=== PATIENT | female | born 1945 | race Caucasian/White ===

== ENCOUNTER 2017-01-26 23:15 | Emergency (ER) | payer OTHER, MEDICARE ==
[2017-01-26] MEDS ORDERED: Sodium Chloride 0.9% 1,000 ML IV ONE (23:29)
[2017-01-26] MEDS ORDERED: Sodium Chloride 0.9% 10 ML Syringe FLUSH PRN (23:29)
[2017-01-26] MEDS ORDERED: Ketorolac 15 MG/ML SDV IVPUSH ONE (23:38)
[2017-01-26] MEDS ORDERED: Sodium Chloride 0.9% 100 ML IV SCH (23:45)
[2017-01-26] MEDS ORDERED: Iopamidol 612 MG/ML 100 ML Bottle IVPUSH ONE (23:59)
--- NOTE | 2017-01-27 00:08 | EDM.PDOC ---
ED HPI GENERAL MEDICAL PROBLEM - General Chief Complaint: General Stated Complaint: back pain Time Seen by Provider: 01/26/17 23:20 Source of Information: Reports: Patient History Limitations: Reports: No Limitations - History of Present Illness INITIAL COMMENTS - FREE TEXT/NARRATIVE: Patient reports mid back pain on the left side that wraps around to under the left breast area. Was seen last year around this time and admitted for PE. Was placed on Xarelto for this and by her own admission she has not been taking this consistently. She has taken it the last couple of days. She denies any calf pain, redness, or swelling. Has some SOB with deep breaths. No arm, neck , or jaw pain. Denies any abdominal pain. Is having regular bm's and voiding habits with no blood. Multiple allergies. Works at the [employer] in [employer]. She denies smoking. Rare alcohol use. History of Factor V Leiden, chronic lymphocytic leukemia. Family history of coagulopathy. Onset: Today, Gradual Duration: Intermittent Location: Reports: Chest, Back Quality: Reports: Pressure Severity: Moderate Associated Symptoms: Reports: Chest Pain, Shortness of Breath Left Upper Back Pain Score (Numeric/FACES): 7 - Related Data Allergies Allergy/AdvReac Type Severity Reaction Status Date / Time azithromycin [From Zithromax] Allergy Abdominal Verified 01/26/17 23:36 Cramps diltiazem [From Cardizem] Allergy Rash Verified 01/26/17 23:36 doxycycline Allergy Rash Verified 01/26/17 23:36 Penicillins Allergy Rash Verified 01/26/17 23:36 Sulfa (Sulfonamide Allergy Rash Verified 01/26/17 23:36 Antibiotics) fluvastatin [From Lescol] AdvReac Muscle Verified 01/26/17 23:36 Aches hydromorphone HCl AdvReac Hallucinati Verified 01/26/17 23:36 [From Dilaudid] ons morphine AdvReac Hallucinati Verified 01/26/17 23:36 ons nitroglycerin AdvReac Nausea Verified 01/26/17 23:36 oxycodone AdvReac Lightheaded Verified 01/26/17 23:36 ness rosuvastatin [From Crestor] AdvReac Muscle Verified 01/26/17 23:36 Aches tramadol AdvReac Nausea and Verified 01/26/17 23:36 Vomiting Home Meds: Home Meds Omeprazole 1 cap PO DAILY PRN 06/25/13 [History] Cholecalciferol (Vitamin D3) [Vitamin D3] 10,000 unit PO DAILY 02/11/16 [History ] Losartan/Hydrochlorothiazide [Hyzaar 50-12.5 Tablet] 1 each PO DAILY 02/11/16 [ History] Ubidecarenone [Co Q-10] 100 mg PO DAILY 02/11/16 [History] Rivaroxaban [Xarelto] 15 mg PO DAILY 02/12/16 [History] Past Medical History HEENT History: Reports: Impaired Vision Cardiovascular History: Reports: Hypertension Respiratory History: Reports: PE Gastrointestinal History: Reports: Other (See Below) Other Gastrointestinal History: reflux in past Genitourinary History: Reports: UTI, Recurrent [employer] History: Reports: Other (See Below) Other OB/BYN History: hysterectomy Oncologic (Cancer) History: Reports: Other (See Below) Other Oncologic History: CLL - Infectious Disease History Infectious Disease History: Reports: Chicken Pox Other Infectious Disease History: chicken pox as a child - Past Surgical History HEENT Surgical History: Reports: None Oncologic Surgical History: Reports: None Social & Family History - Family History Family Medical History: Noncontributory HEENT: Reports: Other (See Below) Other HEENT Family History: Patient's mother had strokes at 59, Patient's father had heart attack at 75 Cardiac: Reports: OR, Other (See Below) Other Cardiac Family History: see above - Tobacco Use Smoking Status *Q: Unknown Ever Smoked ED ROS GENERAL - Review of Systems Review Of Systems: See Below Constitutional: Reports: No Symptoms HEENT: Reports: No Symptoms Respiratory: Reports: Shortness of Breath Cardiovascular: Reports: Chest Pain Endocrine: Reports: No Symptoms GI/Abdominal: Reports: No Symptoms : Reports: No Symptoms Musculoskeletal: Reports: Back Pain Skin: Reports: No Symptoms Neurological: Reports: No Symptoms Psychiatric: Reports: No Symptoms Hematologic/Lymphatic: Reports: No Symptoms Immunologic: Reports: No Symptoms ED EXAM, GENERAL - Physical Exam Exam: See Below Exam Limited By: No Limitations General Appearance: Alert, WD/WN, No Apparent Distress Eye Exam: Bilateral Eye: EOMI, PERRL Ears: Normal TMs Nose: Normal Inspection Throat/Mouth: Normal Inspection, Normal Oropharynx Head: Atraumatic, Normocephalic Neck: Normal Inspection, Supple Respiratory/Chest: No Respiratory Distress, Lungs Clear, Normal Breath Sounds, No Accessory Muscle Use, Chest Non-Tender Cardiovascular: Normal Peripheral Pulses, Regular Rate, Rhythm, No Murmur GI/Abdominal: Normal Bowel Sounds, Soft, Non-Tender Back Exam: No: CVA Tenderness (L), CVA Tenderness (R) Extremities: Normal Inspection, Normal Range of Motion, Non-Tender, No Pedal Edema Neurological: Alert, Oriented, CN II-XII Intact, Normal Cognition, Normal Gait, Normal Reflexes, No Motor/Sensory Deficits Psychiatric: Normal Affect, Normal Mood Skin Exam: Warm, Dry, Intact, Normal Color, No Rash Lymphatic: No Adenopathy Course - Vital Signs Last Recorded V/S: Last Vital Signs Temp 36.1 C 01/27/17 01:11 Pulse 71 01/27/17 01:11 Resp 18 01/27/17 01:11 BP 145/105 H 01/27/17 01:11 Pulse Ox 96 01/27/17 01:11 - Orders/Labs/Meds Orders: Active Orders 24 hr Category Date Time Status EKG 12 Lead [EKG Documentation Completion] [RC] ROUTINE Care 01/26/17 23:49 Ordered Abdomen Pelvis w Cont [CT] Stat Exams 01/27/17 00:10 Taken Ang Chest [CT] Stat Exams 01/27/17 00:10 Taken Saline Lock Insert [OM.PC] Routine Oth 01/26/17 23:29 Ordered Labs: Laboratory Tests 01/26/17 01/26/17 01/26/17 Range/Units 23:51 23:51 23:51 WBC 14.3 H (4.0-10.0) x10^3/uL RBC 4.65 (4.00-5.50) x10^6/uL Hgb 13.2 D (12.0-16.0) g/dL Hct 41.2 (33.0-47.0) % MCV 88.6 D (78.0-93.0) fL MCH 28.4 (26.0-32.0) pg MCHC 32.0 (32.0-36.0) g/dL RDW Coeff of Maryjane 15.3 H (10.0-15.0) % Plt Count 172 (130-400) x10^3/uL Add Manual Diff Yes Neutrophils % (Manual) 17 L (50-80) % Lymphocytes % (Manual) 78 H (25-50) % Monocytes % (Manual) 3 (2-11) % Eosinophils % (Manual) 2 (0-4) % Smudge Cells Moderate H Platelet Estimate Adequate Poikilocytosis Rare Anisocytosis 1+ slight H Microcytosis 1+ slight H Ovalocytes 1+ slight H Stomatocytes 1+ slight H Helmet Cells Rare PT (9.8-11.8) SEC INR (2.0-3.5) D-Dimer, Quantitative 0.62 H (<=0.58) mg/LFEU Sodium 145 (136-145) mmol/L Potassium 3.5 (3.5-5.1) mmol/L Chloride 106 (98-107) mmol/L Carbon Dioxide 30 (21-32) mmol/L BUN 15 (7-18) mg/dL Creatinine 1.0 (0.55-1.02) mg/dL Est Cr Clr Drug Dosing 53.56 mL/min Estimated GFR (MDRD) 55 Glucose 113 H (74-106) mg/dL Calcium 9.1 (8.5-10.1) mg/dL Corrected Calcium 9.42 (8.5-10.1) mg/dL Total Bilirubin 0.4 (0.2-1.0) mg/dL AST 13 L (15-37) U/L ALT 13 L (14-59) U/L Alkaline Phosphatase 72 (46-116) U/L Creatine Kinase 79 (26-192) U/L Creatine Kinase Index TNP CK-MB (CK-2) TNP POC Troponin I (0.00-0.08) ng/mL NT-Pro-B Natriuret Pep 175 H (<=125) pg/mL Total Protein 5.9 L (6.4-8.2) g/dL Albumin 3.6 (3.4-5.0) g/dL Globulin 2.3 Albumin/Globulin Ratio 1.57 TSH, Ultra Sensitive 4.006 H (0.358-3.74) uIU/mL Urine Color (YELLOW) Urine Appearance (CLEAR) Urine pH (5.0-8.0) Ur Specific [place] Urine Protein (NEGATIVE) mg/dL Urine Glucose (UA) (NEGATIVE) mg/dL Urine Ketones (NEGATIVE) mg/dL Urine Occult Blood (NEGATIVE) Urine Nitrite (NEGATIVE) Urine Bilirubin (NEGATIVE) Urine Urobilinogen (0.2) EU/dL Ur Leukocyte Esterase (NEGATIVE) Urine RBC (NOT SEEN) /HPF Urine WBC (NOT SEEN) /HPF Ur Squamous Epith Cells (NEGATIVE) /HPF Urine Bacteria (NEGATIVE) /HPF Urine Mucus (NEGATIVE) /LPF 01/26/17 01/26/17 01/27/17 Range/Units 23:51 23:55 00:11 WBC (4.0-10.0) x10^3/uL RBC (4.00-5.50) x10^6/uL Hgb (12.0-16.0) g/dL Hct (33.0-47.0) % MCV (78.0-93.0) fL MCH (26.0-32.0) pg MCHC (32.0-36.0) g/dL RDW Coeff of Maryjane (10.0-15.0) % Plt Count (130-400) x10^3/uL Add Manual Diff Neutrophils % (Manual) (50-80) % Lymphocytes % (Manual) (25-50) % Monocytes % (Manual) (2-11) % Eosinophils % (Manual) (0-4) % Smudge Cells Platelet Estimate Poikilocytosis Anisocytosis Microcytosis Ovalocytes Stomatocytes Helmet Cells PT 12.7 H (9.8-11.8) SEC INR 1.2 L (2.0-3.5) D-Dimer, Quantitative (<=0.58) mg/LFEU Sodium (136-145) mmol/L Potassium (3.5-5.1) mmol/L Chloride (98-107) mmol/L Carbon Dioxide (21-32) mmol/L BUN (7-18) mg/dL Creatinine (0.55-1.02) mg/dL Est Cr Clr Drug Dosing mL/min Estimated GFR (MDRD) Glucose (74-106) mg/dL Calcium (8.5-10.1) mg/dL Corrected Calcium (8.5-10.1) mg/dL Total Bilirubin (0.2-1.0) mg/dL AST (15-37) U/L ALT (14-59) U/L Alkaline Phosphatase (46-116) U/L Creatine Kinase (26-192) U/L Creatine Kinase Index CK-MB (CK-2) POC Troponin I 0.00 (0.00-0.08) ng/mL NT-Pro-B Natriuret Pep (<=125) pg/mL Total Protein (6.4-8.2) g/dL Albumin (3.4-5.0) g/dL Globulin Albumin/Globulin Ratio TSH, Ultra Sensitive (0.358-3.74) uIU/mL Urine Color Yellow (YELLOW) Urine Appearance Slightly cloudy H (CLEAR) Urine pH 5.5 (5.0-8.0) Ur Specific [place] 1.025 Urine Protein Negative (NEGATIVE) mg/dL Urine Glucose (UA) Negative (NEGATIVE) mg/dL Urine Ketones Negative (NEGATIVE) mg/dL Urine Occult Blood Trace-intact H (NEGATIVE) Urine Nitrite Negative (NEGATIVE) Urine Bilirubin Negative (NEGATIVE) Urine Urobilinogen 0.2 (0.2) EU/dL Ur Leukocyte Esterase Negative (NEGATIVE) Urine RBC 5-10 H (NOT SEEN) /HPF Urine WBC 0-5 (NOT SEEN) /HPF Ur Squamous Epith Cells Rare (NEGATIVE) /HPF Urine Bacteria Not seen (NEGATIVE) /HPF Urine Mucus Rare H (NEGATIVE) /LPF Meds: Medications Discontinued Medications Generic Name Dose Route Start Last Admin Trade Name Freq PRN Reason Stop Dose Admin Hydrocodone Bitart/Acetaminophen 0.5 tab 01/27/17 01:07 01/27/17 01:18 Cost 325-10 Mg PO 01/27/17 01:08 0.5 tab ONETIME ONE Administration Ceftriaxone Sodium 1 gm 01/27/17 01:32 01/27/17 01:39 Rocephin IVPUSH 01/27/17 01:33 1 gm ONETIME ONE Administration Fentanyl 50 mcg 01/27/17 00:09 01/27/17 00:14 Sublimaze IVPUSH 01/27/17 00:10 50 mcg ONETIME ONE Administration Fentanyl 50 mcg 01/27/17 01:06 01/27/17 01:13 Sublimaze IVPUSH 01/27/17 01:07 50 mcg ONETIME ONE Administration Sodium Chloride 1,000 mls @ 999 mls/hr 01/26/17 23:29 01/26/17 23:38 Normal Saline IV 01/27/17 00:29 999 mls/hr ONETIME ONE Administration Sodium Chloride 100 mls @ 3 mls/sec 01/26/17 23:45 01/27/17 00:46 Normal Saline IV 3 mls/sec ASDIRECTED KALEB Administration Iopamidol 100 ml 01/26/17 23:59 01/27/17 00:45 Isovue-300 (61%) IVPUSH 01/27/17 00:00 100 ml ONETIME ONE Administration Ketorolac Tromethamine 15 mg 01/26/17 23:38 01/26/17 23:43 Toradol IVPUSH 01/26/17 23:39 15 mg ONETIME ONE Administration Ondansetron HCl 4 mg 01/27/17 01:07 01/27/17 01:17 Zofran IVPUSH 01/27/17 01:08 4 mg ONETIME ONE Administration Sodium Chloride 10 ml 01/26/17 23:29 Saline Flush FLUSH ASDIRECTED PRN Keep Vein Open - Radiology Interpretation Free Text/Narrative:: Review of diagnostics and CT exams. CT negative for PE, positive for hiatal hernia, umbilical hernia, cholelithiasis. Urine has blood and mucous. - Re-Assessments/Exams Free Text/Narrative Re-Assessment/Exam: 01/27/17 16:[address] this morning by Keisha did show an upper left breast mass that was indeterminant. Recommended mammogram. this result was called and shared with Rosalba who verbalized understanding and agreed to call her primary. Departure - Departure Time of Disposition: 01:55 Disposition: Home, Self-Care 01 Condition: Fair Clinical Impression: Pyelonephritis - Discharge Information Instructions: Pyelonephritis, Adult, [id number] Referrals: PCP,Unobtain [Ordering Only Provider] - Forms: ED Department Discharge Additional Instructions: Drink plenty of water and less coffee. Follow up with your primary provider as needed. You need to be taking your Xarelto daily as prescribed to prevent blood clots and pulmonary embolus. Finish your entire course of antibiotics. We will call you if your urine culture shows resistance to the Cipro. You can take tylenol for pain control. Use any NSAIDS like ibuprofen, aleve, or motrin very sparingly. I would suggest you not take them if possible. Your CT did not show any clots in your lungs. It did show a hiatal hernia, a small umbilical hernia, some diverticulosis, and stones in your gall bladder. Please call us if you have any questions or concerns. - Problem List & Annotations (1) Pyelonephritis SNOMED Code(s): 48277687 Code(s): N12 - TUBULO-INTERSTITIAL NEPHRITIS, NOT SPCF ACUTE OR CHRONIC Status: Acute Priority: Low - Problem List Review Problem List Initiated/Reviewed/Updated: Yes - My Orders Last 24 Hours: My Active Orders 01/26/17 23:29 Saline Lock Insert [OM.PC] Routine 01/26/17 23:49 EKG 12 Lead [EKG Documentation Completion] [RC] ROUTINE 01/27/17 00:10 Abdomen Pelvis w Cont [CT] Stat Ang Chest [CT] Stat - Assessment/Plan Last 24 Hours: My Active Orders 01/26/17 23:29 Saline Lock Insert [OM.PC] Routine 01/26/17 23:49 EKG 12 Lead [EKG Documentation Completion] [RC] ROUTINE 01/27/17 00:10 Abdomen Pelvis w Cont [CT] Stat Ang Chest [CT] Stat Assessment:: pyelonephritis Plan: Drink plenty of water and less coffee. Follow up with your primary provider as needed. You need to be taking your Xarelto daily as prescribed to prevent blood clots and pulmonary embolus. Finish your entire course of antibiotics. We will call you if your urine culture shows resistance to the Cipro. You can take tylenol for pain control. Use any NSAIDS like ibuprofen, aleve, or motrin very sparingly. I would suggest you not take them if possible. Your CT did not show any clots in your lungs. It did show a hiatal hernia, a small umbilical hernia, some diverticulosis, and stones in your gall bladder. Please call us if you have any questions or concerns.
[2017-01-27] MEDS ORDERED: fentaNYL 100 MCG/2 ML SDV IVPUSH ONE ×2 (00:09→01:06)
[2017-01-27 00:28] LABS: CHLORIDE,CL 106 mmol/L (98-107); SODIUM,NA 145 mmol/L (136-145)
[2017-01-27] MEDS ORDERED: Acetaminophen/HYDROcodone 325-10 MG Tab PO ONE (01:07)
[2017-01-27] MEDS ORDERED: Ondansetron 4 MG/2 ML SDV IVPUSH ONE (01:07)
[2017-01-27 01:12] VITALS: BP 145/105
[2017-01-27] MEDS ORDERED: cefTRIAXone 1 GM Vial IVPUSH ONE (01:32)
--- NOTE | 2017-01-27 15:59 | PCM.SN ---
- Free Text/Narrative Note: Patient called this afternoon and given results of her CT that was over read by Keisha this morning. According to CT reports she does have a mass in the upper left breast that is indeterminant. Recommendations were to have a mammogram to rule out potential breast cancer. She did verbalize understanding of this result and did state she would call her primary care provider to schedule her mammogram.
== END 2017-01-27 01:55 | disposition home or self-care (01) ==
LOC: VM.ED 23:15
DX: N12 Tubulo-interstitial nephritis, not specified as acute or chronic (principal); I10 Essential (primary) hypertension; Z88.5 Allergy status to narcotic agent; Z88.0 Allergy status to penicillin; Z88.1 Allergy status to other antibiotic agents; Z88.2 Allergy status to sulfonamides; Z79.899 Other long term (current) drug therapy; Z87.440 Personal history of urinary (tract) infections
CPT/HCPCS: 36415; 71275; 74177; 80053; 81001; 82550; 83880; 84443; 84484; 85025; 85379; 85610; 96361; 96374; 96375; 96376; 99284; A9270; J0696; J1885; J2405; J3010; J7030; J7050; Q9967; 93005

== ENCOUNTER 2019-11-13 09:18 | Emergency (ER) | payer MEDICARE, OTHER ==
[2019-11-13] MEDS ORDERED: Sodium Chloride 0.9% 10 ML Syringe FLUSH PRN (09:38)
--- NOTE | 2019-11-13 09:52 | EDM.PDOC ---
ED HPI GENERAL MEDICAL PROBLEM - General Stated Complaint: ER Time Seen by Provider: 11/13/19 09:18 Source of Information: Reports: Patient History Limitations: Reports: No Limitations - History of Present Illness INITIAL COMMENTS - FREE TEXT/NARRATIVE: Pt. presents to ER with complaints of L sided chest pain that started yesterday afternoon. She is concerned that she has a PE. Pt. has had 2 PEs in the past- approx. 10 years ago, and one in 04/10. 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 Pt. states that the pain is "squeezing". Denies any cough. No sick contacts. Denies any fever or chills. No substernal chest pain. No jaw, arm, neck or back pain. No palpitations. Looks like the patient has a history of recurrent pneumonia in the past as well. Pt. denies any recent trauma to the area. She states that the discomfort is constant, and is potentiated with deep breathing. Pt. denies any calf tenderness, duskiness, discoloration, aching, or extremity fatigue with activity. Onset Date: 11/12/19 Onset Time: 15:00 Location: Reports: Chest Quality: Reports: Pressure, Sharp Severity: Moderate Left Chest Pain Score (Numeric/FACES): 9 - Related Data Allergies Allergy/AdvReac Type Severity Reaction Status Date / Time amoxicillin Allergy Rash Verified 11/13/19 10:17 diltiazem [From Cardizem] Allergy Rash Verified 11/13/19 10:17 doxycycline Allergy Rash Verified 11/13/19 10:17 Penicillins Allergy Rash Verified 11/13/19 10:17 Sulfa (Sulfonamide Allergy Rash Verified 11/13/19 10:17 Antibiotics) azithromycin [From Zithromax] AdvReac Abdominal Verified 11/13/19 10:17 Cramps fluvastatin [From Lescol] AdvReac Muscle Verified 11/13/19 10:17 Aches hydromorphone HCl AdvReac Hallucinati Verified 11/13/19 10:17 [From Dilaudid] ons morphine AdvReac Hallucinati Verified 11/13/19 10:17 ons nitroglycerin AdvReac Nausea Verified 11/13/19 10:17 oxycodone AdvReac Lightheaded Verified 11/13/19 10:17 ness rosuvastatin [From Crestor] AdvReac Muscle Verified 11/13/19 10:17 Aches tramadol AdvReac Nausea and Verified 11/13/19 10:17 Vomiting isotopes Allergy Cannot Uncoded 11/13/19 10:17 Remember Home Meds: Home Meds Omeprazole 20 mg PO DAILY PRN 06/25/13 [History] Losartan/Hydrochlorothiazide [Hyzaar 50-12.5 Tablet] 1 tab PO DAILY 02/11/16 [History] Ubidecarenone [Co Q-10] 100 mg PO DAILY 02/11/16 [History] Rivaroxaban [Xarelto] 15 mg PO DAILY@1800 02/12/16 [History] Cholecalciferol (Vitamin D3) [Vitamin D3] 2,000 unit PO BID 04/10/17 [History] Iron 60 mg PO DAILY 04/10/17 [History] Loratadine [Claritin] 10 mg PO BEDTIME tablet 04/20/17 [Rx] Magnesium Oxide 400 mg PO DAILY tablet 04/20/17 [Rx] Past Medical History HEENT History: Reports: Impaired Vision Cardiovascular History: Reports: Hypertension Respiratory History: Reports: PE Gastrointestinal History: Reports: Other (See Below) Other Gastrointestinal History: reflux in past Genitourinary History: Reports: UTI, Recurrent BRANCH SPECIALIST History: Reports: Other (See Below) Other BRANCH SPECIALIST History: hysterectomy Hematologic History: Reports: Other (See Below) (Factor V Leiden and prothrombin gene mutation) Oncologic (Cancer) History: Reports: Other (See Below) Other Oncologic History: CLL - Infectious Disease History Infectious Disease History: Reports: Chicken Pox Other Infectious Disease History: chicken pox as a child - Past Surgical History HEENT Surgical History: Reports: None Oncologic Surgical History: Reports: None Social & Family History - Family History Family Medical History: Noncontributory HEENT: Reports: Other (See Below) Other HEENT Family History: Patient's mother had strokes at 59, Patient's father had heart attack at 75 Cardiac: Reports: [place], Other (See Below) Other Cardiac Family History: see above - Caffeine Use Caffeine Use: Reports: Coffee, Soda ED ROS GENERAL - Review of Systems Review Of Systems: See Below Constitutional: Reports: No Symptoms HEENT: Reports: No Symptoms Respiratory: Reports: Shortness of Breath, Pleuritic Chest Pain Cardiovascular: Reports: No Symptoms Endocrine: Reports: No Symptoms GI/Abdominal: Reports: No Symptoms : Reports: No Symptoms Musculoskeletal: Reports: No Symptoms Skin: Reports: No Symptoms Neurological: Reports: No Symptoms Psychiatric: Reports: No Symptoms Hematologic/Lymphatic: Reports: Other (See PMH. 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.) Immunologic: Reports: No Symptoms ED EXAM, GENERAL - Physical Exam Exam: See Below Exam Limited By: No Limitations General Appearance: Alert, WD/WN, Anxious Eye Exam: Bilateral Eye: EOMI, PERRL Throat/Mouth: Normal Inspection, Normal Lips, Normal Teeth, Normal Voice, No Airway Compromise Head: Atraumatic, Normocephalic Neck: Supple, Non-Tender Respiratory/Chest: No Respiratory Distress, Lungs Clear, Chest Non-Tender Cardiovascular: Normal Peripheral Pulses, Regular Rate, Rhythm, No Edema, No Murmur Peripheral Pulses: 4+: Radial (R) GI/Abdominal: Soft, Non-Tender, No Organomegaly, No Distention, No Mass (Female) Exam: Deferred Rectal (Female) Exam: Deferred Back Exam: Normal Inspection, Full Range of Motion Extremities: Normal Inspection, Normal Range of Motion, Non-Tender, No Pedal Edema, Normal Capillary Refill Neurological: Alert, Oriented, CN II-XII Intact, Normal Cognition, Normal Gait, Normal Reflexes, No Motor/Sensory Deficits Psychiatric: Normal Affect, Normal Mood Skin Exam: Warm, Dry, Intact, Normal Color, No Rash Lymphatic: No Adenopathy EKG INTERPRETATION Rhythm: NSR [place]: Normal P-Wave: Present QRS: Normal ST-T: Normal QT: Normal Course - Vital Signs Last Recorded V/S: Last Vital Signs Temp 36.8 C 11/13/19 09:18 Pulse 78 11/13/19 10:30 Resp 20 11/13/19 09:18 BP 170/91 H 11/13/19 10:30 Pulse Ox 94 L 11/13/19 09:18 - Orders/Labs/Meds Orders: Active Orders 24 hr Category Date Time Status EKG Documentation Completion [RC] STAT Care 11/13/19 09:39 Active CULTURE BLOOD [BC] Stat Lab 11/13/19 09:51 Received CULTURE BLOOD [BC] Stat Lab 11/13/19 09:56 Received Sodium Chloride 0.9% [Saline Flush] Med 11/13/19 09:38 Active 10 ml FLUSH ASDIRECTED PRN Blood Culture x2 Reflex Set [OM.PC] Stat Oth 11/13/19 09:39 Ordered Peripheral IV Insertion Adult [OM.PC] Routine Oth 11/13/19 09:39 Ordered Medication Orders Sodium Chloride (Saline Flush) 10 ml FLUSH ASDIRECTED PRN PRN Reason: Keep Vein Open Last Admin: 11/13/19 11:04 Dose: 10 ml Documented by: MITRA Labs: Laboratory Tests 11/13/19 11/13/19 11/13/19 Range/Units 09:30 09:30 09:30 WBC 15.4 H (4.0-10.0) x10^3/uL RBC 4.73 (4.00-5.50) x10^6/uL Hgb 11.9 L D (12.0-16.0) g/dL Hct 37.3 (33.0-47.0) % MCV 78.9 D (78.0-93.0) fL MCH 25.2 L (26.0-32.0) pg MCHC 31.9 L (32.0-36.0) g/dL RDW Coeff of Maryjane 16.1 H (10.0-15.0) % Plt Count 218 D (130-400) x10^3/uL Add Manual Diff Yes Neutrophils % (Manual) 47 L (50-80) % Band Neutrophils % 2 (0-6) % Lymphocytes % (Manual) 46 (25-50) % Monocytes % (Manual) 5 (2-11) % Platelet Estimate Adequate Hypochromasia 1+ slight H Anisocytosis 1+ slight H Microcytosis 1+ slight H PT 9.7 (9.5-12.3) SEC INR 0.9 L (2.0-3.5) D-Dimer, Quantitative (<=0.58) mg/LFEU Sodium 137 (136-145) mmol/L Potassium 3.7 (3.5-5.1) mmol/L Chloride 103 (98-107) mmol/L Carbon Dioxide 27 (21-32) mmol/L Anion Gap 10.7 (10-20) mmol/L BUN 13 (7-18) mg/dL Creatinine 0.8 (0.55-1.02) mg/dL Est Cr Clr Drug Dosing TNP Estimated GFR (MDRD) > 60 Glucose 114 H (74-106) mg/dL Lactic Acid (0.4-2.0) mmol/L Calcium 9.3 (8.5-10.1) mg/dL Corrected Calcium 9.70 (8.5-10.1) mg/dL Magnesium 1.8 (1.8-2.4) mg/dL Total Bilirubin 0.8 (0.2-1.0) mg/dL AST 12 L (15-37) U/L ALT 13 L (14-59) U/L Alkaline Phosphatase 85 (46-116) U/L Troponin I < 0.017 (<=0.056) ng/mL C-Reactive Protein 8.7 H (<=0.9) mg/dL Total Protein 6.2 L (6.4-8.2) g/dL Albumin 3.5 (3.4-5.0) g/dL Globulin 2.7 Albumin/Globulin Ratio 1.30 11/13/19 11/13/19 Range/Units 09:30 09:30 WBC (4.0-10.0) x10^3/uL RBC (4.00-5.50) x10^6/uL Hgb (12.0-16.0) g/dL Hct (33.0-47.0) % MCV (78.0-93.0) fL MCH (26.0-32.0) pg MCHC (32.0-36.0) g/dL RDW Coeff of Maryjane (10.0-15.0) % Plt Count (130-400) x10^3/uL Add Manual Diff Neutrophils % (Manual) (50-80) % Band Neutrophils % (0-6) % Lymphocytes % (Manual) (25-50) % Monocytes % (Manual) (2-11) % Platelet Estimate Hypochromasia Anisocytosis Microcytosis PT (9.5-12.3) SEC INR (2.0-3.5) D-Dimer, Quantitative 1.05 H (<=0.58) mg/LFEU Sodium (136-145) mmol/L Potassium (3.5-5.1) mmol/L Chloride (98-107) mmol/L Carbon Dioxide (21-32) mmol/L Anion Gap (10-20) mmol/L BUN (7-18) mg/dL Creatinine (0.55-1.02) mg/dL Est Cr Clr Drug Dosing Estimated GFR (MDRD) Glucose (74-106) mg/dL Lactic Acid 0.9 (0.4-2.0) mmol/L Calcium (8.5-10.1) mg/dL Corrected Calcium (8.5-10.1) mg/dL Magnesium (1.8-2.4) mg/dL Total Bilirubin (0.2-1.0) mg/dL AST (15-37) U/L ALT (14-59) U/L Alkaline Phosphatase (46-116) U/L Troponin I (<=0.056) ng/mL C-Reactive Protein (<=0.9) mg/dL Total Protein (6.4-8.2) g/dL Albumin (3.4-5.0) g/dL Globulin Albumin/Globulin Ratio Meds: Medications Generic Name Dose Route Start Last Admin Trade Name Freq PRN Reason Stop Dose Admin Sodium Chloride 10 ml 11/13/19 09:38 11/13/19 11:04 Saline Flush FLUSH 10 ml ASDIRECTED PRN Administration Keep Vein Open Discontinued Medications Generic Name Dose Route Start Last Admin Trade Name Freq PRN Reason Stop Dose Admin Iopamidol 100 ml 11/13/19 11:45 11/13/19 11:47 Isovue-300 (61%) IVPUSH 11/13/19 11:46 100 ml ONETIME ONE Administration Ketorolac Tromethamine 15 mg 11/13/19 10:58 11/13/19 11:04 Toradol IVPUSH 11/13/19 10:59 15 mg ONETIME ONE Administration - Radiology Interpretation Free Text/Narrative:: No PE on CTA. Mild pleural thickening. No infiltrate or other pathology. Departure - Departure Time of Disposition: 12:00 Disposition: Home, Self-Care 01 Clinical Impression: Atypical chest pain - Discharge Information Instructions: Naproxen and naproxen sodium oral immediate-release tablets, Nonspecific Chest Pain, Adult, [id number], Prednisone tablets Referrals: Jessee Jones MD [Primary Care Provider] - Forms: ED Department Discharge Additional Instructions: Prednisone 40mg once daily for 5 days Naproxen sodium 500mg 1 twice daily as needed for 10 days Follow-up with Dr. Jones in 7-10 days, sooner if not improving. Sepsis Event Note (ED) - Focused Exam Vital Signs: Vital Signs Temp Pulse Resp BP Pulse Ox 11/13/19 10:30 78 170/91 H 11/13/19 09:30 68 182/88 H 11/13/19 09:18 36.8 C 110 H 20 170/96 H 94 L - My Orders Last 24 Hours: My Active Orders 11/13/19 09:38 Sodium Chloride 0.9% [Saline Flush] 10 ml FLUSH ASDIRECTED PRN 11/13/19 09:39 EKG Documentation Completion [RC] STAT Blood Culture x2 Reflex Set [OM.PC] Stat Peripheral IV Insertion Adult [OM.PC] Routine 11/13/19 09:51 CULTURE BLOOD [BC] Stat 11/13/19 09:56 CULTURE BLOOD [BC] Stat - Assessment/Plan Last 24 Hours: My Active Orders 11/13/19 09:38 Sodium Chloride 0.9% [Saline Flush] 10 ml FLUSH ASDIRECTED PRN 11/13/19 09:39 EKG Documentation Completion [RC] STAT Blood Culture x2 Reflex Set [OM.PC] Stat Peripheral IV Insertion Adult [OM.PC] Routine 11/13/19 09:51 CULTURE BLOOD [BC] Stat 11/13/19 09:56 CULTURE BLOOD [BC] Stat Plan: Prednisone 40mg once daily for 5 days Naproxen sodium 500mg 1 twice daily as needed for 10 days Follow-up with Dr. Jones in 7-10 days, sooner if not improving.
[2019-11-13 10:16] LABS: ANION GAP 10.7 mmol/L (10-20); CHLORIDE,CL 103 mmol/L (98-107); SODIUM,NA 137 mmol/L (136-145)
--- NOTE | 2019-11-13 10:21 | CR ---
[id number] RAD/RAD Chest PA or AP 1V EXAM: RAD Chest PA or AP 1V INDICATION: LEFT-SIDED CHEST PAIN. COMPARISON: April 18, 2017. DISCUSSION: Cardiomediastinal silhouette is normal in size and contour. No infiltrate, effusion, pneumothorax, or edema. Bibasilar linear atelectasis and/or scarring. IMPRESSION: Bibasilar linear atelectasis and/or scarring. Vaibhav Arthur DO 11/13/19 1020 Thank you for allowing us to participate in the care of your patient.
[2019-11-13 10:51] VITALS: BP 170/91; PULSE 78
[2019-11-13] MEDS ORDERED: Ketorolac 15 MG/ML SDV IVPUSH ONE (10:58)
[2019-11-13] MEDS ORDERED: Iopamidol 612 MG/ML 100 ML Bottle IVPUSH ONE (11:45)
--- NOTE | 2019-11-13 11:56 | CT ---
[id number] CT/CTA Chest Exam: CTA Chest Clinical Data: CHEST PAIN POSITIVE D-DIMER HISTORY OF PULMONARY EMBOLUS COMPARISON: CORRELATION IS MADE WITH APRIL 19, 2017 FINDINGS: There are no pulmonary emboli There is a large hiatal hernia. There is mild pleural reaction at both lung bases. There is no mediastinal mass or adenopathy The great vessels are intact IMPRESSION: NO PULMONARY EMBOLI Joshua Haque MD 11/13/19 [id number] Thank you for allowing us to participate in the care of your patient.
== END 2019-11-13 12:15 | disposition home or self-care (01) ==
LOC: VM.ED 09:18
DX: R07.89 Other chest pain (principal); I10 Essential (primary) hypertension; K21.9 Gastro-esophageal reflux disease without esophagitis; Z86.711 Personal history of pulmonary embolism; Z88.1 Allergy status to other antibiotic agents; Z88.0 Allergy status to penicillin; Z88.2 Allergy status to sulfonamides; Z88.8 Allergy status to other drugs, medicaments and biological substances; Z88.5 Allergy status to narcotic agent; Z90.710 Acquired absence of both cervix and uterus; Z79.899 Other long term (current) drug therapy; Z79.01 Long term (current) use of anticoagulants
CPT/HCPCS: 36415; 71045; 71275; 80053; 83605; 83735; 84484; 85025; 85379; 85610; 86140; 87040; 93005; 96374; 99285-25; J1885; Q9967

== ENCOUNTER 2022-01-07 13:58 | Emergency (ER) | payer OTHER ==
[2022-01-07] MEDS ORDERED: Sodium Chloride 0.9% 10 ML Syringe FLUSH PRN (14:04)
[2022-01-07] MEDS ORDERED: Albuterol/Ipratropium 3.0-0.5 MG/3 ML Neb Soln NEB ONE (14:08)
[2022-01-07] MEDS ORDERED: cefTRIAXone 1 GM, Lidocaine 1% 2.1 ML IM ONE ×2 (14:42)
[2022-01-07 14:57] LABS: CHLORIDE,CL 103 mmol/L (98-107); SODIUM,NA 141 mmol/L (136-145)
[2022-01-07 14:58] LABS: ANION GAP 14.5 mmol/L (5-15); ESTIMATED GFR 67 mL/min (>=60)
[2022-01-07 18:18] VITALS: BP 155/88; PULSE 88
== END 2022-01-07 15:35 | disposition home or self-care (01) ==
LOC: VM.ED 13:58
DX: J18.9 Pneumonia, unspecified organism (principal); I10 Essential (primary) hypertension; Z88.1 Allergy status to other antibiotic agents; Z88.8 Allergy status to other drugs, medicaments and biological substances; Z88.0 Allergy status to penicillin; Z88.2 Allergy status to sulfonamides; Z88.6 Allergy status to analgesic agent; Z88.5 Allergy status to narcotic agent; Z79.899 Other long term (current) drug therapy; Z20.822 Contact with and (suspected) exposure to COVID-19
CPT/HCPCS: 36415; 71045; 80053; 83880; 84484; 85025; 87635; 93005; 94640; 96372; 99285; J0696; J7620-GY; U0002

== ENCOUNTER 2022-08-21 17:26 | Emergency (ER) | payer OTHER ==
[2022-08-21] MEDS ORDERED: Sodium Chloride 0.9% 10 ML Syringe FLUSH PRN (17:30)
[2022-08-21 18:37] LABS: CHLORIDE,CL 105 mmol/L (98-107); SODIUM,NA 140 mmol/L (136-145)
[2022-08-21 18:42] LABS: ANION GAP 13.7 mmol/L (5-15); ESTIMATED GFR 67 mL/min (>=60)
[2022-08-21] MEDS ORDERED: Iopamidol 755 Mg/ML 100 ML Bottle IVPUSH ONE (19:44)
[2022-08-21] MEDS ORDERED: cefTRIAXone 2 GM Vial IVPUSH ONE (19:53)
[2022-08-21] MEDS ORDERED: Ketorolac 15 MG/ML SDV IVPUSH ONE (20:12)
[2022-08-21] MEDS ORDERED: Acetaminophen/HYDROcodone 325-5 MG Tab PO ONE (20:13)
[2022-08-21] MEDS ORDERED: Levofloxacin 500 MG Tab PO ONE (20:16)
[2022-08-21] MEDS ORDERED: Take Home: Levofloxacin 500 MG Tab, 1 Tab Pack PO ONE (20:16)
[2022-08-21 20:20] LABS: CORONAVIRUS COVID-19 NAA POSITIVE (NEGATIVE); RESPIRATORY SYNCYTIAL VIR NAA NEGATIVE (NEGATIVE)
[2022-08-21] MEDS ORDERED: Take Home: Ciprofloxacin 500 MG Tab, 2 Tab Pack PO ONE ×2 (20:42→20:53)
[2022-08-21 23:13] VITALS: PULSE 100
[2022-08-22 01:08] VITALS: BP 160/97
== END 2022-08-21 21:04 | disposition home or self-care (01) ==
LOC: VM.ED 17:26
DX: U07.1 COVID-19 (principal); N39.0 Urinary tract infection, site not specified; I10 Essential (primary) hypertension; K21.9 Gastro-esophageal reflux disease without esophagitis; Z86.711 Personal history of pulmonary embolism; Z88.0 Allergy status to penicillin; Z88.8 Allergy status to other drugs, medicaments and biological substances; Z88.1 Allergy status to other antibiotic agents; Z88.2 Allergy status to sulfonamides; Z88.5 Allergy status to narcotic agent; Z79.01 Long term (current) use of anticoagulants; Z79.899 Other long term (current) drug therapy
CPT/HCPCS: 0241U; 36415; 71045; 71275; 80053; 81001; 83605; 83735; 83880; 84100; 84484; 85025; 85379; 85610; 85730; 86140; 87040; 87086; 87088; 93005; 93010; 96374; 99284; 99285-25; A9270-GY; J1885; Q9967

== ENCOUNTER 2022-08-27 15:47 | Emergency (ER) | payer OTHER ==
[2022-08-27 16:20] VITALS: BP 173/99; PULSE 103
[2022-08-27 16:46] LABS: HEMATOCRIT 32.6 % (33.0-47.0); HEMOGLOBIN 9.6 g/dL (12.0-16.0); MEAN CORPUSCULAR HGB CONC 29.4 g/dL (32.0-36.0); MEAN CORPUSCULAR VOLUME 64.6 fL (78.0-93.0); PLATELET COUNT,PLT 316 x10^3/uL (130-400); RED BLOOD CELL COUNT 5.05 x10^6/uL (4.00-5.50); WHITE BLOOD CELL COUNT,WBC 9.4 x10^3/uL (4.0-10.0)
[2022-08-27 16:56] LABS: A/G RATIO 1.33; ALANINE AMINOTRANSFERASE,ALT 25 U/L (14-59); ALBUMIN 3.6 g/dL (3.4-5.0); ALKALINE PHOSPHATASE 108 U/L (46-116); ANION GAP 14.4 mmol/L (5-15); ASPARTATE AMNIOTRANSFERASE,AST 21 U/L (15-37); BILIRUBIN TOTAL 0.4 mg/dL (0.2-1.0); BLOOD UREA NITROGEN,BUN 16 mg/dL (7-18); C-REACTIVE PROTEIN < 0.2 mg/dL (<=0.9); CARBON DIOXIDE,CO2 28 mmol/L (21-32); CHLORIDE,CL 101 mmol/L (98-107); ESTIMATED GFR 59 mL/min (>=60); GLUCOSE RANDOM 106 mg/dL (70-99); POTASSIUM,K 3.4 mmol/L (3.5-5.1); PROTEIN TOTAL,TP 6.3 g/dL (6.4-8.2); SODIUM,NA 140 mmol/L (136-145)
[2022-08-27 17:00] LABS: ANISOCYTOSIS 3+ MARKED; BAND PERCENT MAN 2 % (0-6); BLASTS PERCENT MAN 2 % (0); EOSINOPHILS ABSOLUTE MAN 0.2 x10^3/uL (0.0-0.5); EOSINOPHILS PERCENT MAN 2 % (0-4); LYMPHOCYTES % ATYPICAL MANUAL 6 % (0); LYMPHOCYTES ABSOLUTE MAN 5.9 x10^3/uL (1.0-4.8); LYMPHOCYTES PERCENT MAN 53 % (25-50); MONOCYTES ABSOLUTE MAN 0.7 x10^3/uL (0.0-0.8); MONOCYTES PERCENT MAN 7 % (2-11); NEUTROPHILS ABSOLUTE MAN 2.4 x10^3/uL (1.8-7.7); PLATELET COUNT ESTIMATE ADEQUATE; SEG NEUTROPHILS PERCENT MAN 24 % (50-80)
[2022-08-27 17:01] LABS: MICROCYTOSIS 2+ MODERATE; OVALOCYTES 1+ SLIGHT; POIKILOCYTOSIS 1+ SLIGHT; SPHEROCYTES 1+ SLIGHT; TOXIC GRANULATION 1+ SLIGHT
[2022-08-27 17:23] LABS: BILIRUBIN,URINE SMALL (NEGATIVE); COLOR,URINE DARK YELLOW (YELLOW); GLUCOSE,URINE NEGATIVE (NEGATIVE); KETONES,URINE NEGATIVE (NEGATIVE); LEUKOCYTE ESTERASE,URINE MODERATE (NEGATIVE); NITRITE,URINE POSITIVE (NEGATIVE); OCCULT BLOOD,URINE NEGATIVE (NEGATIVE); PROTEIN,URINE 30 mg/dL (NEGATIVE); UROBILINOGEN,URINE 0.2 EU/dL (0.2)
[2022-08-27 17:25] LABS: APPEARANCE,URINE CLOUDY (CLEAR)
[2022-08-27 17:29] LABS: BACTERIA,URINE MODERATE /HPF (NOT SEEN); MUCUS,URINE FEW /LPF (NOT SEEN); RBC,URINE 0-5 /HPF (NOT SEEN); SQUAMOUS EPITHELIAL CELLS,UR MODERATE /HPF (NOT SEEN)
[2022-08-27 17:30] LABS: AMORPHOUS SEDIMENT,URINE FEW; WBC,URINE 20-30 /HPF (NOT SEEN)
[2022-08-27] MEDS ORDERED: Nitrofurantoin Monohydrate/Macrocrystalline 100 MG Cap PO ONE (18:55)
== END 2022-08-27 19:16 | disposition home or self-care (01) ==
LOC: VM.ED 15:47
DX: U07.1 COVID-19 (principal); N39.0 Urinary tract infection, site not specified; I10 Essential (primary) hypertension; Z86.16 Personal history of COVID-19; Z88.0 Allergy status to penicillin; Z88.1 Allergy status to other antibiotic agents; Z88.2 Allergy status to sulfonamides; Z88.5 Allergy status to narcotic agent; Z88.8 Allergy status to other drugs, medicaments and biological substances; Z79.899 Other long term (current) drug therapy
CPT/HCPCS: 36415; 71046; 80053; 81001; 85025; 86140; 87086; 99285; A9270; 99284

== ENCOUNTER 2023-06-01 23:20 | Emergency (ER) | payer OTHER ==
[2023-06-01 23:56] LABS: HEMATOCRIT 40.7 % (33.0-47.0); HEMOGLOBIN 12.9 g/dL (12.0-16.0); MEAN CORPUSCULAR HEMOGLOBIN 27.6 pg (26.0-32.0); MEAN CORPUSCULAR HGB CONC 31.7 g/dL (32.0-36.0); MEAN CORPUSCULAR VOLUME 87.2 fL (78.0-93.0); PLATELET COUNT,PLT 102 x10^3/uL (130-400); RED BLOOD CELL COUNT 4.67 x10^6/uL (4.00-5.50); WHITE BLOOD CELL COUNT,WBC 5.3 x10^3/uL (4.0-10.0)
[2023-06-02] MEDS: Acetaminophen 325 MG Tab PO ONE (00:10)
[2023-06-02] MEDS: Sodium Chloride 0.9% 1,000 ML IV ONE ×2 (00:10→01:05)
[2023-06-02 00:15] LABS: A/G RATIO 1.67; ALANINE AMINOTRANSFERASE,ALT 19 U/L (14-59); ALBUMIN 3.5 g/dL (3.4-5.0); ALKALINE PHOSPHATASE 76 U/L (46-116); ASPARTATE AMNIOTRANSFERASE,AST 26 U/L (15-37); BILIRUBIN TOTAL 0.5 mg/dL (0.2-1.0); BLOOD UREA NITROGEN,BUN 15 mg/dL (7-18); C-REACTIVE PROTEIN 0.86 mg/dL (<=0.50); CALCIUM 8.4 mg/dL (8.5-10.1); CARBON DIOXIDE,CO2 26 mmol/L (21-32); CHLORIDE,CL 103 mmol/L (98-107); CREATININE 0.9 mg/dL (0.55-1.02); GLUCOSE RANDOM 120 mg/dL (70-99); POTASSIUM,K 3.5 mmol/L (3.5-5.1); PROTEIN TOTAL,TP 5.6 g/dL (6.4-8.2); SODIUM,NA 141 mmol/L (136-145)
[2023-06-02 00:17] LABS: ANION GAP 15.5 mmol/L (5-15); ESTIMATED GFR 66 mL/min (>=60)
[2023-06-02 00:35] LABS: CORONAVIRUS COVID-19 NAA NEGATIVE (NEGATIVE); INFLUENZA A NAA NEGATIVE (NEGATIVE)
[2023-06-02 00:37] LABS: INFLUENZA B NAA POSITIVE (NEGATIVE); RESPIRATORY SYNCYTIAL VIR NAA NEGATIVE (NEGATIVE)
[2023-06-02 00:44] LABS: BAND PERCENT MAN 5 % (0-6); BLASTS PERCENT MAN 1 % (0); LYMPHOCYTES % ATYPICAL MANUAL 4 % (0); LYMPHOCYTES ABSOLUTE MAN 1.6 x10^3/uL (1.0-4.8); LYMPHOCYTES PERCENT MAN 26 % (25-50); MONOCYTES ABSOLUTE MAN 0.4 x10^3/uL (0.0-0.8); MONOCYTES PERCENT MAN 7 % (2-11); NEUTROPHILS ABSOLUTE MAN 3.3 x10^3/uL (1.8-7.7); SEG NEUTROPHILS PERCENT MAN 57 % (50-80)
[2023-06-02 00:45] LABS: GIANT PLATELETS OCCASIONAL; PLATELET COUNT ESTIMATE DECREASED; POIKILOCYTOSIS 2+ MODERATE
[2023-06-02] MEDS: Ibuprofen 200 MG Tab PO STA (01:05)
[2023-06-02 01:18] VITALS: PULSE 136
[2023-06-02 01:41] VITALS: BP 141/79
== END 2023-06-02 01:56 | disposition home or self-care (01) ==
LOC: VM.ED 23:20
DX: J10.1 Influenza due to other identified influenza virus with other respiratory manifestations (principal); I10 Essential (primary) hypertension; E78.00 Pure hypercholesterolemia, unspecified; K21.9 Gastro-esophageal reflux disease without esophagitis; Z86.16 Personal history of COVID-19; Z90.49 Acquired absence of other specified parts of digestive tract; Z90.710 Acquired absence of both cervix and uterus; Z79.899 Other long term (current) drug therapy; Z88.2 Allergy status to sulfonamides; Z88.5 Allergy status to narcotic agent; Z88.6 Allergy status to analgesic agent; Z88.0 Allergy status to penicillin; Z88.8 Allergy status to other drugs, medicaments and biological substances
CPT/HCPCS: 0241U; 36415; 71046; 80053; 83605; 84145; 85025; 86140; 87040; 96360; 96361; 99285; A9270; J7030

== ENCOUNTER 2023-06-12 11:42 | Emergency (ER) | payer OTHER ==
[2023-06-12] MEDS ORDERED: Sodium Chloride 0.9% 10 ML Syringe FLUSH PRN (12:11)
[2023-06-12 12:24] LABS: HEMOGLOBIN 12.8 g/dL (12.0-16.0); MEAN CORPUSCULAR HEMOGLOBIN 27.5 pg (26.0-32.0); PLATELET COUNT,PLT 328 x10^3/uL (130-400); RED BLOOD CELL COUNT 4.65 x10^6/uL (4.00-5.50); WHITE BLOOD CELL COUNT,WBC 13.1 x10^3/uL (4.0-10.0)
[2023-06-12] MEDS: Sodium Chloride 0.9% 1,000 ML IV ONE (12:25)
[2023-06-12] MEDS: Aspirin 81 MG Tab.Chew PO ONE (12:25)
[2023-06-12 12:44] LABS: BAND PERCENT MAN 1 % (0-6); EOSINOPHILS ABSOLUTE MAN 0.1 x10^3/uL (0.0-0.5); EOSINOPHILS PERCENT MAN 1 % (0-4); LYMPHOCYTES % ATYPICAL MANUAL 1 % (0); LYMPHOCYTES ABSOLUTE MAN 5.8 x10^3/uL (1.0-4.8); LYMPHOCYTES PERCENT MAN 43 % (25-50); MONOCYTES ABSOLUTE MAN 0.5 x10^3/uL (0.0-0.8); MONOCYTES PERCENT MAN 4 % (2-11); NEUTROPHILS ABSOLUTE MAN 6.7 x10^3/uL (1.8-7.7); SEG NEUTROPHILS PERCENT MAN 50 % (50-80)
[2023-06-12 12:45] LABS: PLATELET COUNT ESTIMATE ADEQUATE; POIKILOCYTOSIS 2+ MODERATE
[2023-06-12 12:48] LABS: A/G RATIO 1.59; ALANINE AMINOTRANSFERASE,ALT 39 U/L (14-59); ALBUMIN 3.5 g/dL (3.4-5.0); ALKALINE PHOSPHATASE 101 U/L (46-116); ASPARTATE AMNIOTRANSFERASE,AST 37 U/L (15-37); BILIRUBIN TOTAL 0.8 mg/dL (0.2-1.0); BLOOD UREA NITROGEN,BUN 21 mg/dL (7-18); CALCIUM 9.4 mg/dL (8.5-10.1); CARBON DIOXIDE,CO2 27 mmol/L (21-32); CHLORIDE,CL 105 mmol/L (98-107); CREATININE 0.9 mg/dL (0.55-1.02); GLUCOSE RANDOM 119 mg/dL (70-99); PROTEIN TOTAL,TP 5.7 g/dL (6.4-8.2); SODIUM,NA 142 mmol/L (136-145)
[2023-06-12 12:49] LABS: ESTIMATED GFR 66 mL/min (>=60)
[2023-06-12] MEDS: Metoprolol Tartrate 5 MG/5 ML SDV IVPUSH ONE (13:06)
[2023-06-12 23:09] VITALS: BP 169/113; PULSE 138
== END 2023-06-12 13:49 | disposition home or self-care (01) ==
LOC: VM.ED 11:42
DX: R07.89 Other chest pain (principal); I49.1 Atrial premature depolarization; I10 Essential (primary) hypertension; K21.9 Gastro-esophageal reflux disease without esophagitis; Z86.16 Personal history of COVID-19; Z79.02 Long term (current) use of antithrombotics/antiplatelets; Z79.899 Other long term (current) drug therapy; Z88.8 Allergy status to other drugs, medicaments and biological substances; Z88.5 Allergy status to narcotic agent; Z88.1 Allergy status to other antibiotic agents; Z88.0 Allergy status to penicillin; Z88.2 Allergy status to sulfonamides
CPT/HCPCS: 36415; 71045; 80053; 83605; 84484; 85025; 93005; 93010; 96361; 96374; 99284; 99285-25; A9270-GY; J3490; J7030

== ENCOUNTER 2023-06-13 11:00 | Inpatient (IN) | payer OTHER, MEDICARE ==
[2023-06-13] MEDS ORDERED: Naloxone 0.4 MG/ML SDV IVPUSH PRN ×2 (11:32→19:19)
[2023-06-13] MEDS: fentaNYL 50 MCG/ML SDV IVPUSH ONE (11:35)
[2023-06-13 11:36] LABS: HEMATOCRIT 42.1 % (33.0-47.0); HEMOGLOBIN 13.5 g/dL (12.0-16.0); MEAN CORPUSCULAR HEMOGLOBIN 27.6 pg (26.0-32.0); MEAN CORPUSCULAR HGB CONC 32.1 g/dL (32.0-36.0); MEAN CORPUSCULAR VOLUME 85.9 fL (78.0-93.0); PLATELET COUNT,PLT 390 x10^3/uL (130-400); WHITE BLOOD CELL COUNT,WBC 14.9 x10^3/uL (4.0-10.0)
[2023-06-13 11:55] LABS: INR 1.2 (0.9-1.1); PROTHROMBIN TIME 12.3 SEC (9.5-12.2); PTT,PARTIAL THROMBOPLSTIN TIME 21.4 SEC (23.6-33.6)
[2023-06-13 12:01] LABS: A/G RATIO 1.63; ALANINE AMINOTRANSFERASE,ALT 59 U/L (14-59); ALBUMIN 3.9 g/dL (3.4-5.0); ALKALINE PHOSPHATASE 118 U/L (46-116); ASPARTATE AMNIOTRANSFERASE,AST 50 U/L (15-37); BILIRUBIN TOTAL 0.9 mg/dL (0.2-1.0); BLOOD UREA NITROGEN,BUN 19 mg/dL (7-18); CALCIUM 9.8 mg/dL (8.5-10.1); CARBON DIOXIDE,CO2 28 mmol/L (21-32); CHLORIDE,CL 103 mmol/L (98-107); CREATININE 0.9 mg/dL (0.55-1.02); GLUCOSE RANDOM 113 mg/dL (70-99); PRO B-TYPE NATRIUR PEPT,BNPPRO 9571 pg/mL (<=450); PROTEIN TOTAL,TP 6.3 g/dL (6.4-8.2); SODIUM,NA 142 mmol/L (136-145)
[2023-06-13 12:02] LABS: C-REACTIVE PROTEIN < 0.50 mg/dL (<=0.50); ESTIMATED GFR 66 mL/min (>=60)
[2023-06-13 12:04] LABS: BAND PERCENT MAN 1 % (0-6); LYMPHOCYTES ABSOLUTE MAN 5.4 x10^3/uL (1.0-4.8); LYMPHOCYTES PERCENT MAN 30 % (25-50); MONOCYTES ABSOLUTE MAN 1.5 x10^3/uL (0.0-0.8); MONOCYTES PERCENT MAN 10 % (2-11); PLATELET COUNT ESTIMATE ADEQUATE; SEG NEUTROPHILS PERCENT MAN 53 % (50-80)
[2023-06-13] MEDS: Metoprolol Tartrate 5 MG/5 ML SDV IVPUSH ONE (12:04)
[2023-06-13] MEDS: Furosemide 40 MG/4 ML VIAL IV ONE (13:30)
[2023-06-13] MEDS: Metoprolol Tartrate 25 MG Tab PO STA (14:24)
[2023-06-13] MEDS ORDERED: Albuterol HFA 18 Gm Inhaler INH PRN (14:58)
[2023-06-13] MEDS ORDERED: Polyethylene Glycol 3350 Powder 17 GM Packet PO PRN (15:27)
[2023-06-13] MEDS ORDERED: Acetaminophen 325 MG Tab PO PRN (15:27)
[2023-06-13] MEDS: Ibuprofen 200 MG Tab PO PRN (17:17)
[2023-06-13] MEDS: Rivaroxaban 10 MG Tab PO SCH (17:17)
[2023-06-13] MEDS: fentaNYL 50 MCG/ML SDV IVPUSH PRN (20:29)
[2023-06-13] MEDS ORDERED: Metoprolol Tartrate 25 MG Tab PO SCH (21:00)
[2023-06-13] MEDS: Triamcinolone Acetonide 0.1% Crm 15 GM Tube TOP SCH (21:36)
[2023-06-13] MEDS: Metoprolol Tartrate 25 MG Tab PO ONE (21:37)
[2023-06-13] MEDS: Cholecalciferol (Vitamin D3) 25 MCG Tab PO SCH (21:37)
[2023-06-14 07:12] LABS: HEMOGLOBIN 12.7 g/dL (12.0-16.0); MEAN CORPUSCULAR HEMOGLOBIN 27.4 pg (26.0-32.0); MEAN CORPUSCULAR HGB CONC 31.8 g/dL (32.0-36.0); MEAN CORPUSCULAR VOLUME 86.2 fL (78.0-93.0); PLATELET COUNT,PLT 333 x10^3/uL (130-400); RED BLOOD CELL COUNT 4.64 x10^6/uL (4.00-5.50); WHITE BLOOD CELL COUNT,WBC 15.1 x10^3/uL (4.0-10.0)
[2023-06-14 07:34] LABS: ANISOCYTOSIS 1+ SLIGHT; BAND PERCENT MAN 2 % (0-6); LYMPHOCYTES ABSOLUTE MAN 7.4 x10^3/uL (1.0-4.8); LYMPHOCYTES PERCENT MAN 49 % (25-50); MONOCYTES ABSOLUTE MAN 0.3 x10^3/uL (0.0-0.8); MONOCYTES PERCENT MAN 2 % (2-11); NEUTROPHILS ABSOLUTE MAN 7.4 x10^3/uL (1.8-7.7); SEG NEUTROPHILS PERCENT MAN 47 % (50-80); SMUDGE CELLS FEW
[2023-06-14 07:35] LABS: PLATELET COUNT ESTIMATE ADEQUATE
[2023-06-14 07:41] LABS: A/G RATIO 1.64; ALBUMIN 3.6 g/dL (3.4-5.0); BILIRUBIN TOTAL 0.7 mg/dL (0.2-1.0); CALCIUM 9.6 mg/dL (8.5-10.1); EST CRCL DRUG DOSING (CG) 50.02 mL/min; MAGNESIUM 1.9 mg/dL (1.8-2.4); POTASSIUM,K 3.4 mmol/L (3.5-5.1); PROTEIN TOTAL,TP 5.8 g/dL (6.4-8.2)
[2023-06-14 07:42] LABS: ANION GAP 15.4 mmol/L (5-15)
[2023-06-14] MEDS: Metoprolol Succinate 25 MG Tab.ER PO SCH (08:14)
[2023-06-14] MEDS: Losartan 50 MG Tab PO SCH (08:14)
[2023-06-14] MEDS: Furosemide 20 MG Tab PO SCH (08:15)
[2023-06-14] MEDS ORDERED: Non-Formulary Medication 1 Each (Ubidecarenone [Co Q-10] 100 MG Capsule) PO SCH (09:00)
[2023-06-14] MEDS: Metoprolol Succinate 25 MG Tab.ER PO ONE (09:17)
[2023-06-14] MEDS: Ketorolac 15 MG/ML SDV IVPUSH PRN (11:42)
[2023-06-14] MEDS: Metoprolol Tartrate 5 MG/5 ML SDV IVPUSH PRN (11:43)
[2023-06-14] MEDS: Metoprolol Succinate 50 MG Tab.ER PO SCH (20:36)
[2023-06-15] MEDS: Sodium Chloride 0.9% 10 ML Syringe FLUSH PRN (03:04)
[2023-06-15] MEDS: Ondansetron 4 MG Tab.DIS PO PRN (04:46)
[2023-06-15 08:45] LABS: HEMATOCRIT 37.4 % (33.0-47.0); HEMOGLOBIN 11.8 g/dL (12.0-16.0); MEAN CORPUSCULAR HEMOGLOBIN 27.5 pg (26.0-32.0); MEAN CORPUSCULAR HGB CONC 31.6 g/dL (32.0-36.0); MEAN CORPUSCULAR VOLUME 87.2 fL (78.0-93.0); PLATELET COUNT,PLT 302 x10^3/uL (130-400); RED BLOOD CELL COUNT 4.29 x10^6/uL (4.00-5.50); WHITE BLOOD CELL COUNT,WBC 12.6 x10^3/uL (4.0-10.0)
[2023-06-15 08:58] LABS: CALCIUM 9.2 mg/dL (8.5-10.1); CREATININE 0.9 mg/dL (0.55-1.02); EST CRCL DRUG DOSING (CG) 55.57 mL/min; POTASSIUM,K 3.7 mmol/L (3.5-5.1)
[2023-06-15] MEDS ORDERED: Metoprolol Succinate 50 MG Tab.ER PO SCH (09:00)
[2023-06-15 09:04] LABS: ANION GAP 10.7 mmol/L (5-15)
[2023-06-15 09:07] LABS: BAND PERCENT MAN 2 % (0-6); EOSINOPHILS ABSOLUTE MAN 0.4 x10^3/uL (0.0-0.5); EOSINOPHILS PERCENT MAN 3 % (0-4); LYMPHOCYTES % ATYPICAL MANUAL 3 % (0); LYMPHOCYTES ABSOLUTE MAN 6.2 x10^3/uL (1.0-4.8); LYMPHOCYTES PERCENT MAN 46 % (25-50); MONOCYTES ABSOLUTE MAN 0.4 x10^3/uL (0.0-0.8); MONOCYTES PERCENT MAN 3 % (2-11); NEUTROPHILS ABSOLUTE MAN 5.7 x10^3/uL (1.8-7.7); SEG NEUTROPHILS PERCENT MAN 43 % (50-80)
[2023-06-15 09:08] LABS: ANISOCYTOSIS 1+ SLIGHT; PLATELET COUNT ESTIMATE ADEQUATE; SMUDGE CELLS FEW; STOMATOCYTES FEW
[2023-06-16 09:04] VITALS: PULSE 78
[2023-06-16 13:27] VITALS: BP 120/78
== END 2023-06-16 11:15 | disposition home or self-care (01) | DRG 309 ==
LOC: VM.ED 11:00 → VM.MS 13:36
PROVIDERS: ADMIT Physician Assistant; ATTEND Physician Assistant
DX: I48.91 Unspecified atrial fibrillation (principal); D68.51 Activated protein C resistance; I11.0 Hypertensive heart disease with heart failure; I50.9 Heart failure, unspecified; E78.00 Pure hypercholesterolemia, unspecified; K21.9 Gastro-esophageal reflux disease without esophagitis; F41.9 Anxiety disorder, unspecified; Z96.649 Presence of unspecified artificial hip joint; R62.7 Adult failure to thrive; D50.0 Iron deficiency anemia secondary to blood loss (chronic); Z88.1 Allergy status to other antibiotic agents; Z88.2 Allergy status to sulfonamides; Z88.5 Allergy status to narcotic agent; Z88.8 Allergy status to other drugs, medicaments and biological substances; Z79.01 Long term (current) use of anticoagulants; Z79.51 Long term (current) use of inhaled steroids; Z79.899 Other long term (current) drug therapy; Z90.710 Acquired absence of both cervix and uterus; Z86.711 Personal history of pulmonary embolism; Z87.440 Personal history of urinary (tract) infections; Z86.16 Personal history of COVID-19; Z90.89 Acquired absence of other organs; Z85.6 Personal history of leukemia
CPT/HCPCS: 36415; 71046; 80048; 80053; 83735; 83880; 84443; 84484; 85025; 85610; 85730; 86140; 93005; 93010; 96374; 96375; 97161-GP; 99284; 99285-25; A9270-GY; J1885; J1940; J3010; J3490